=== PATIENT | female | born 1950 | race Caucasian/White ===

== ENCOUNTER 2016-11-30 01:06 | Emergency (ER) | payer OTHER, MEDICAID ==
[~2016-11-30] VITALS: Ht 160 cm; Wt 65.8 kg
[~2016-11-30 01:06] MED LIST: LEXA5TAB PO; NEXI40CA PO; REGL10TA5 PO; SIMV10TA PO
[2016-11-30 01:13] VITALS: BP 187/96; PULSE 96; RESP 16; TEMP 98.4; O2SAT 99
[2016-11-30 01:28] LABS: BLOOD, URINE SMALL (NEG); GLUCOSE,URINE NEG (NEG); KETONE, URINE NEG (NEG); NITRITE,URINE NEG (NEG)
[2016-11-30 01:29] LABS: URINE COLOR STRAW (YELLW/STRAW)
[2016-11-30 01:32] LABS: COMMENT (UR) CULT NOT INDICATED; CULTURE IF INDICATED CULT NOT INDICATED; SQUAMOUS EPITHELIAL CELL URINE 0-5 /hpf (0-5); WBC, URINE 0-2 /hpf (0-5)
[2016-11-30] MEDS ORDERED: MACR100C2 PO (01:51)
[2016-11-30] MEDS ORDERED: DIFL150T PO (01:51)
--- NOTE | 2016-11-30 01:53 | PD ---
HPI Chief Complaint: Complaint Time Seen by Provider: 01:35 Travel History International Travel<30 days: No Contact w/Intl Traveler<30days: No Traveled to known affect area: No History of Present Illness HPI The patient is a 66-year-old female that complains of frequency of urination, having to go every 10 minutes in the last 24 hours. She also has dysuria. She also has urgency. She has been drinking increased liquids. She denies any fever, nausea, vomiting or diarrhea. She states that she does not have any flank pain. PFSH Past Medical History Arthritis: Yes Anxiety: Yes High Cholesterol: Yes Diminished Hearing: No GERD: Yes (BEGINNING OF GREENBERG'S ESOPHAGUS) Musculoskeletal: Yes (SPINAL STENOSIS ) Psychiatric: Yes (OCD) Tetanus Vaccination: Unknown Influenza Vaccination: Yes ?: Not Menopausal: Yes : 2 : 2 Past Surgical History Appendectomy: Yes Social History Alcohol Use: No Tobacco Use: Yes (1PPD) Substance Use: No Allergies-Medications (Allergen,Severity, Reaction): Coded Allergies: adhesive (Verified Allergy, Severe, RASH, 11/30/16) Reported Meds & Prescriptions Reported Meds & Active Scripts Active Review of Systems Except as stated in HPI: all other systems reviewed are Neg Physical Exam Narrative GENERAL: The patient is alert, oriented 3 in slight apparent distress with her urinary tract symptoms. Her vital signs show blood pressure 187/96 and heart rate of 96 but are otherwise normal. SKIN: Focused skin assessment warm/dry. HEAD: Atraumatic. Normocephalic. EYES: Pupils equal and round. No scleral icterus. No injection or drainage. ENT: No nasal bleeding or discharge. Mucous membranes pink and moist. NECK: Trachea midline. No JVD. CARDIOVASCULAR: Regular rate and rhythm. No murmur appreciated. RESPIRATORY: No accessory muscle use. Clear to auscultation. Breath sounds equal bilaterally. GASTROINTESTINAL: Abdomen soft, with minimal tenderness over both flanks and considerable steps suprapubic discomfort on direct palpation, nondistended. Hepatic and splenic margins not palpable. No guarding or rebound is present. MUSCULOSKELETAL: No obvious deformities. No clubbing. No cyanosis. No edema. NEUROLOGICAL: Awake and alert. No obvious cranial nerve deficits. Motor grossly within normal limits. Normal speech. PSYCHIATRIC: Appropriate mood and affect; insight and judgment normal. Data Data Last Documented VS Vital Signs Date Time Temp Pulse Resp B/P (MAP) Pulse Ox O2 Delivery O2 Flow Rate FiO2 11/30/16 01:31 16 11/30/16 01:13 98.4 96 187/96 (126) 99 Orders Orders Urinalysis - C+S If Indicated (11/30/16 01:11) Labs Laboratory Tests Test 11/30/16 01:05 Urine Color STRAW Urine Turbidity CLEAR Urine pH 6.0 Urine Specific [place] 1.005 Urine Protein NEG mg/dL Urine Glucose (UA) NEG mg/dL Urine Ketones NEG mg/dL Urine Occult Blood SMALL Urine Nitrite NEG Urine Bilirubin NEG Urine Leukocyte Esterase NEG Urine RBC 3-5 /hpf Urine WBC 0-2 /hpf Urine Squamous Epithelial Cells 0-5 /hpf Urine Bacteria NONE /hpf Microscopic Urinalysis Comment CULT NOT INDICATED MDM Medical Decision Making Medical Screen Exam Complete: Yes Emergency Medical Condition: Yes Medical Record Reviewed: Yes Interpretation(s) The urine shows an extremely dilute urine with specific gravity 1.005. There is small occult blood and 3-5 red cells and 0 to white cells. No bacteria is noted. Differential Diagnosis Cystitis, pyelonephritis, interstitial cystitis, diabetes with hyperglycemia Narrative Course The patient has a very dilute urine. Were this urine more concentrated it would show positive on the leukocytes as well as blood. It is felt that she diluted her urine so much that it appears superficially normal. The patient has strong symptoms of cystitis and we will treat this as a cystitis. The patient states that she gets a yeast infection after antibiotics and so we will give her a Diflucan 150 mg prescription. Diagnosis Primary Impression: Cystitis Additional Instructions: Take the Diflucan after you complete the antibiotics. Also, you have one refill on the Diflucan. Follow up with your primary care physician. Med/Other Pt SpecificInfo: Prescription(s) given Scripts Fluconazole (Diflucan) 150 Mg Tab 150 MG PO ONCE for Infection, #1 TAB 0 Refills Prov: Aramis Santoyo MD 11/30/16 Nitrofurantoin Monohydrate Macrocrystals (Macrobid) 100 Mg Cap 100 MG PO BID for Infection for 10 Days, #20 CAP 0 Refills Prov: Aramis Santoyo MD 11/30/16 Disposition: DISCHARGE HOME Condition: Stable Aramis Santoyo MD Nov 30, 2016 01:53
[2016-11-30] MEDS ORDERED: PHEN0.4T PO (01:56)
[2016-11-30] MEDS ORDERED: NITROFURANTOIN MONOHYD MACROCR 100 MG CAP PO ONE (02:00)
[2016-11-30] MEDS ORDERED: PHENAZOPYRIDINE HCL 100 MG TAB PO ONE (02:00)
[2016-11-30 02:10] VITALS: BP 140/90
== END 2016-11-30 02:12 | disposition home or self-care (01) ==
LOC: PHED 01:06
DX: N30.90 Cystitis, unspecified without hematuria (principal); E78.00 Pure hypercholesterolemia, unspecified; K21.9 Gastro-esophageal reflux disease without esophagitis
CPT/HCPCS: 81001; 99284

== ENCOUNTER 2017-01-21 14:26 | Emergency (ER) | payer MEDICAID, OTHER ==
[~2017-01-21 14:26] MED LIST changes: +DIFL150T PO; -LEXA5TAB PO; +MACR100C2 PO; -NEXI40CA PO; +PHEN0.4T PO; -REGL10TA5 PO; -SIMV10TA PO
[2017-01-21 14:35] VITALS: BP 143/84; PULSE 116; RESP 16; TEMP 98.2; O2SAT 98
[2017-01-21 14:44] LABS: BLOOD, URINE NEG (NEG); GLUCOSE,URINE 250 mg/dL (NEG); KETONE, URINE TRACE mg/dL (NEG); NITRITE,URINE POS (NEG)
[2017-01-21 14:50] LABS: METHOD OF COLLECTION CLEAN CATCH; URINE COLOR ORANGE (YELLW/STRAW)
[2017-01-21 14:51] LABS: BACTERIA, URINE FEW /hpf; COMMENT (UR) CULTURE INDICATED; CULTURE IF INDICATED CULTURE INDICATED; RBC, URINE 0-3 /hpf (0-3); SQUAMOUS EPITHELIAL CELL URINE 0-5 /hpf (0-5)
[2017-01-21] MEDS ORDERED: LEXA10TA PO (15:03)
[2017-01-21] MEDS ORDERED: CHOLPOW65 PO (15:03)
[2017-01-21] MEDS ORDERED: OMEP20TA93 PO (15:03)
[2017-01-21] MEDS ORDERED: ACETAMINOPHEN 325 MG TAB PO ONE (15:30)
[2017-01-21] MEDS ORDERED: MACR100C2 PO (15:35)
[2017-01-21] MEDS ORDERED: PHEN0.4T PO (15:35)
--- NOTE | 2017-01-21 15:36 | PD ---
HPI Chief Complaint: Abdominal Pain Time Seen by Provider: 14:46 Travel History International Travel<30 days: No Contact w/Intl Traveler<30days: No Traveled to known affect area: No History of Present Illness HPI 66-year-old female complains of pain overlying the right half of the pubis bones. The pain started yesterday evening at rest. She denies injury/trauma/ excessive use. The pain radiates into the medial right thigh to about the midportion of the femur. She reports a history of UTIs on a recurrent basis and does not believe that today's presentation is urinary tract infection. She denies vaginal discharge or bleeding. No fever nausea vomiting. No back pain or upper abdomen pain. She does report urinary frequency. PFSH Past Medical History Hx Anticoagulant Therapy: No Arthritis: Yes Anxiety: Yes Cardiovascular Problems: Yes (CHOL) High Cholesterol: Yes Diabetes: No Diminished Hearing: No GERD: Yes (BEGINNING OF GREENBERG'S ESOPHAGUS) Musculoskeletal: Yes (SPINAL STENOSIS ) Psychiatric: Yes (OCD) Immunizations Current: Yes Tetanus Vaccination: < 5 Years Influenza Vaccination: Yes ?: Not Menopausal: Yes : 2 : 2 Past Surgical History Appendectomy: Yes Social History Alcohol Use: No Tobacco Use: Yes (1PPD) Substance Use: No Allergies-Medications (Allergen,Severity, Reaction): Coded Allergies: adhesive (Verified Allergy, Severe, RASH, 01/21/17) Reported Meds & Prescriptions Reported Meds & Active Scripts Active Macrobid (Nitrofurantoin Monoh/Nitrofur Macro) 100 Mg Cap 100 Mg PO BID 10 Days Pyridium (Phenazopyridine HCl) 100 Mg Tab 100 Mg PO Q8H PRN Reported Cipro (Ciprofloxacin HCl) 500 Mg Tab 500 Mg PO BID Cholesterol 1 Pow Pow 1 Tab PO HS Omeprazole 20 Mg Tab 20 Mg PO DAILY Lexapro (Escitalopram Oxalate) 10 Mg Tab 10 Mg PO DAILY Review of Systems Except as stated in HPI: all other systems reviewed are Neg General / Constitutional: No: Fever Gastrointestinal: No: Nausea, Vomiting, Diarrhea Genitourinary: Positive: Pelvic Pain Physical Exam Narrative GENERAL: 66-year-old female pleasant well-nourished well-developed SKIN: Focused skin assessment warm/dry. HEAD: Atraumatic. Normocephalic. EYES: Pupils equal and round. No scleral icterus. No injection or drainage. ENT: No nasal bleeding or discharge. Mucous membranes pink and moist. NECK: Trachea midline. No JVD. CARDIOVASCULAR: Regular rate and rhythm. No murmur appreciated. RESPIRATORY: No accessory muscle use. Clear to auscultation. Breath sounds equal bilaterally. GASTROINTESTINAL: Abdomen soft, non-tender, nondistended. Hepatic and splenic margins not palpable. MUSCULOSKELETAL: No obvious deformities. No clubbing. No cyanosis. No edema. There is tenderness overlying the right half of the pubis bones. The overlying skin is normal. There is no abnormality on exam with palpation. There is no abnormality on exam with palpation of the medial right leg. NEUROLOGICAL: Awake and alert. No obvious cranial nerve deficits. Motor grossly within normal limits. Normal speech. PSYCHIATRIC: Appropriate mood and affect; insight and judgment normal. Data Data Last Documented VS Vital Signs Date Time Temp Pulse Resp B/P (MAP) Pulse Ox O2 Delivery O2 Flow Rate FiO2 01/21/17 15:41 92 18 158/93 (114) 100 Room Air 01/21/17 14:35 98.2 Vital signs reviewed Orders Orders Urinalysis - C+S If Indicated (01/21/17 14:37) Urine Culture (01/21/17 14:35) Ct Pelvis W/O Iv Contrast (01/21/17 ) Acetaminophen (Tylenol) (01/21/17 15:30) Lidocaine 1% Inj (50 Ml) (Xylocaine 1% I (01/21/17 15:45) Ceftriaxone Inj (Rocephin Inj) (01/21/17 15:45) Ed Discharge Order (01/21/17 16:16) Labs Laboratory Tests Test 01/21/17 14:35 Urine Collection Type CLEAN CATCH Urine Color ORANGE Urine Turbidity CLEAR Urine pH 5.0 Urine Specific [place] 1.021 Urine Protein 100 mg/dL Urine Glucose (UA) 250 mg/dL Urine Ketones TRACE mg/dL Urine Occult Blood NEG Urine Nitrite POS Urine Bilirubin NEG Urine Leukocyte Esterase TRACE Urine RBC 0-3 /hpf Urine WBC 3-5 /hpf Urine Squamous Epithelial Cells 0-5 /hpf Urine Bacteria FEW /hpf Microscopic Urinalysis Comment CULTURE INDICATED Urine Collection Time 14:35 [facility] Medical Decision Making Medical Screen Exam Complete: Yes Emergency Medical Condition: Yes Medical Record Reviewed: Yes Differential Diagnosis urinary tract infection, sprain, contusion Narrative Course Last Impressions Pelvis CT 01/21/17 0000 Signed Impressions: Service Date/Time: Saturday, January 21, 2017 15:18 - CONCLUSION: 1. CT findings characteristic of degenerating myometrial fibroids as above. 2. Postsurgical changes are within 2 clips around the cecum characteristic of a reported history of appendectomy. 3. No acute pelvic process to explain current clinical symptoms. Marin Troncoso MD ua: uti present pt reassured ok for discharge Diagnosis Primary Impression: UTI (urinary tract infection) Qualified Codes: N30.00 - Acute cystitis without hematuria Additional Impression: Pubic bone pain Referrals: Deisy Wilburn MD call for appointment Additional Instructions: DRINK PLENTY OF WATER, THREE LITERS DAILY. FOLLOW WITH DR WILBURN OF OBSTETRICS/GYNECOLOGY. REST AND RELAX OVER THE NEXT WEEK AND DO NOT DO ANY HEAVY LIFTING OR EXCESSIVE EXERCISE. Med/Other Pt SpecificInfo: Prescription(s) given Scripts Nitrofurantoin Monohydrate Macrocrystals (Macrobid) 100 Mg Cap 100 MG PO BID for Infection for 10 Days, #20 CAP 0 Refills Prov: Zhang Spangler MD 01/21/17 Phenazopyridine (Pyridium) 100 Mg Tab 100 MG PO Q8H Y for DYSURIA, #20 TAB 0 Refills Prov: Zhang Spangler MD 01/21/17 Disposition: 01 DISCHARGE HOME Condition: Stable Zhang Spangler MD Jan 21, 2017 15:36
[2017-01-21 15:41] VITALS: BP 158/93; PULSE 92; RESP 18; O2SAT 100
[2017-01-21] MEDS ORDERED: CIPR-9 PO (15:44)
[2017-01-21] MEDS ORDERED: LIDOCAINE HCL 1% 50 ML VIAL IM ONE (15:45)
--- NOTE | 2017-01-21 16:07 | RADRPT ---
EXAM DATE/TIME: 01/21/2017 15:18 [place] COMPARISON: No previous studies available for comparison. INDICATIONS : Right pelvic pain. ORAL CONTRAST: No oral contrast ingested. RADIATION DOSE: 11.02 CTDIvol (mGy) MEDICAL HISTORY : Gastroesophageal reflux disease. SURGICAL HISTORY : Appendectomy. ENCOUNTER: Initial ACUITY: 2 days PAIN SCALE: 4/10 LOCATION: Right pelvis TECHNIQUE: Volumetric scanning of the pelvis was performed. Using automated exposure control and adjustment of the mA and/or kV according to patient size, radiation dose was kept as low as reasonably achievable t o obtain optimal diagnostic quality images. DICOM format image data is available electronically for review and comparison. FINDINGS: BOWEL/MESENTERY: The visualized small and large bowel demonstrate no acute abnormality. There is no free fluid. Surgic al clips around the cecum are characteristic of a reported history of appendectomy. BLADDER: There is no wall thickening or mass. RETROPERITONEUM: There is no aneurysm or lymphadenopathy. REPRODUCTIVE: Scattered calcifications with a 2 cm relatively hyperdense area within the myometrium probably repres ent degenerating fibroids. INGUINAL: There is no lymphadenopathy or hernia. MUSCULOSKELETAL: Within normal limits for patient age. CONCLUSION: 1. CT findings characteristic of degenerating myometrial fibroids as above. 2. Postsurgical changes are within 2 clips around the cecum characteristic of a reported history of a ppendectomy. 3. No acute pelvic process to explain current clinical symptoms. Marin Troncoso MD on January 21, 2017 at 16:01 Board Certified Radiologist. This report was verified electronically.
== END 2017-01-21 16:34 | disposition home or self-care (01) ==
LOC: PHED 14:26
DX: N30.00 Acute cystitis without hematuria (principal); F17.200 Nicotine dependence, unspecified, uncomplicated
CPT/HCPCS: 72192; 81001; 87086; 96372; 99285; J0696